=== PATIENT | male | born 1985 | race African-American/Black ===

== ENCOUNTER 2018-07-24 17:26 | Emergency (ER) | payer SELFPAY ==
[~2018-07-24] VITALS: Ht 188 cm; Wt 100.5 kg
[2018-07-24 17:34] VITALS: Ht 188 cm; Wt 100.5 kg
[2018-07-24] MEDS ORDERED: KEFLEX500 MG PO (18:37)
[2018-07-24 19:25] VITALS: BP 138/90
== END 2018-07-24 19:25 | disposition home or self-care (01) ==
LOC: D.ER 17:26
DX: S91.342A Puncture wound with foreign body, left foot, initial encounter (principal); W45.8XXA Other foreign body or object entering through skin, initial encounter; Y93.89 Activity, other specified; Y92.019 Unspecified place in single-family (private) house as the place of occurrence of the external cause; F17.200 Nicotine dependence, unspecified, uncomplicated

== ENCOUNTER 2020-11-27 22:04 | Emergency (ER) | payer SELFPAY ==
[~2020-11-27] VITALS: Ht 188 cm; Wt 98.4 kg
[~2020-11-27 22:04] MED LIST: KEFLEX500 MG PO
[2020-11-27 22:06] VITALS: Ht 188 cm; Wt 98.4 kg
[2020-11-27] MEDS ORDERED: NAPROSYN500 MG PO (22:55)
[2020-11-27] MEDS ORDERED: ZANAFLEX4 MG PO (22:55)
[2020-11-27 23:27] VITALS: BP 131/68
== END 2020-11-27 23:28 | disposition home or self-care (01) ==
LOC: D.ER 22:04
DX: S16.1XXA Strain of muscle, fascia and tendon at neck level, initial encounter (principal); S20.219A Contusion of unspecified front wall of thorax, initial encounter; V89.2XXA Person injured in unspecified motor-vehicle accident, traffic, initial encounter; Y93.9 Activity, unspecified; Y92.9 Unspecified place or not applicable